=== PATIENT | male | born 1945 | race Hispanic/Latino ===

== ENCOUNTER 2023-11-20 11:58 | Emergency (ER) | payer MEDICARE, OTHER ==
[~2023-11-20] VITALS: Ht 175.3 cm; Wt 80.3 kg
[2023-11-20 12:58] VITALS: BP 163/73; PULSE 54; RESP 20
[2023-11-20] MEDS ORDERED: ONDANSETRON 4MG INJ IVP ONE (13:30)
[2023-11-20] MEDS ORDERED: 0.9%NACL 1000ML 1,000 ML IV ONE (13:30)
[2023-11-20] MEDS ORDERED: MORPHINE 4 MG SYG IVP ONE (13:30)
== END 2023-11-20 14:39 | disposition left against medical advice (07) ==
LOC: EDH 11:58
DX: R10.9 Unspecified abdominal pain (principal); E11.9 Type 2 diabetes mellitus without complications; I10 Essential (primary) hypertension
CPT/HCPCS: 99281